=== PATIENT | male | born 1940 | race Caucasian/White ===

== ENCOUNTER 2019-04-06 13:52 | Day surgery (SDC) | payer MEDICARE, MEDICAID ==
[2019-04-06] MEDS ORDERED: Fentanyl 100 MCG/2 ML VIAL ONE (14:37)
[2019-04-06] MEDS ORDERED: Bupivacaine PF 0.5% 30 ML VIAL ONE (14:39)
[2019-04-06] MEDS ORDERED: Bacitracin Zinc Ointment 30 gm TUBE ONE (14:39)
[2019-04-06] MEDS ORDERED: Lidocaine 1% PF 5 ML VIAL ONE (15:23)
[2019-04-06] MEDS ORDERED: Ondansetron PF 4 MG/2 ML Vial ONE (15:23)
[2019-04-06] MEDS ORDERED: PROPOFOL 200 MG/20 ML VIAL ONE (15:23)
[2019-04-06] MEDS ORDERED: Succinylcholine Chloride 20 MG/ML 10 ml SYRINGE FS ONE (15:23)
[2019-04-06] MEDS ORDERED: Dexamethasone 20 MG/5 ML VIAL ONE (15:23)
[2019-04-06] MEDS ORDERED: ePHEDrine 50 MG/ML VIAL ONE (15:23)
[2019-04-06] MEDS ORDERED: Ketorolac Tromethamine 30 MG/ML VIAL ONE (17:32)
--- NOTE | 2019-04-07 10:20 | OP ---
DATE OF PROCEDURE: 04/06/2019 PREOPERATIVE DIAGNOSES: 1. Open distal phalanx fracture, index finger fracture. 2. Nail bed laceration. 3. 3.5 cm complex wound. POSTOPERATIVE DIAGNOSES: 1. Open distal phalanx fracture, index finger fracture. 2. Nail bed laceration. 3. 3.5 cm complex wound. PROCEDURES PERFORMED: 1. Debridement of wound. 2. Via separate area, debridement of open fracture and material associated with open fracture. 3. Open treatment of the distal phalanx fracture. 4. Nail bed repair. 5. Closure of 3.5 cm wound. 6. Full thickness skin graft 2 x 1 cm harvested from ipsilateral right antecubital fossa. TOURNIQUET TIME: 23 minutes. ESTIMATED BLOOD LOSS: 10 mL. FINDINGS: Minimal contamination. DESCRIPTION OF PROCEDURE: After successful general endotracheal anesthesia, the right upper extremity was prepped and draped. Time-out was done appropriately. He had injection at the MP joint level with 10 mL of 0.5% Marcaine. We also injected skin graft area with the same solution, type and amount prior to harvesting the graft. We then deflated the tourniquet and inflated it to 250 mmHg pressure after the limb exsanguination, it was here that we saw open fracture of the right index finger distal phalanx. There also was nail bed laceration and the patient had lost the distal 4 mm of bone, approximately 5 mm in total skin, but the fracture was treated by curetting, making a smooth bed, debridement was accomplished with a curette, Otero blade, rongeur, and with irrigation with 3 L of Pulsavac with antibiotics inside normal saline. We then began the wound debridement using the same instrumentations slightly proximal and through a separate incision more palmar than dorsal. The patient had a segmental loss of the nail bed, but this was completely covering the bone once we had debrided the fracture and done the open treatment. We then repaired the nail bed back to where the flaps the remnant of the nail bed on the lateral wall or of the overlying fat. We then trimmed the overlying fat, we had finished debridement and irrigation with no gross contamination and we felt and discharge would be indicated. We then took the flap, brought it from its ulnar to radial position and then placed it in a maximum closure effort. When we saw after irrigation that we could not cover this area that it was almost 2 cm long by 8 mm wide defect, we then harvested the same appropriate graft using standard techniques from the antecubital fossa. We then closed this after obtaining hemostasis with a running 4-0 Monocryl undyed and then the wound was reapproximated with fibrin glue (fibrin glue in this case is brand name Dermabond). The patient then had the skin graft placed down over the wound covering all of the fat and area without epidermis or dermis. This then allowed for us using the 4-0 nylons in all 4 corners of the graft to create bolster sutures. We then did a running 6-0 chromic final stitch, tourniquet deflated. Hemostasis was excellent. We then closed the remaining dorsal wound to include the entire eponychial fold. We then placed the mineral oil soaked cotton ball over Adaptic, which was over bacitracin and bolstered it to the actual skin graft. We then placed him in a soft dressing with bacitracin, Adaptic, 4x4, Kerlix, and a small 3 inch Marco wrap to support the finger, but no splint. The patient left the operating room without evidence of anesthetic or operative complication. Job ID: [id number]
== END 2019-04-06 18:47 | disposition home or self-care (01) ==
LOC: SDC 13:52
PROVIDERS: ATTEND Orthopaedic Surgery Hand Surgery
PROC: 0HRFX73 Replacement of Right Hand Skin with Autologous Tissue Substitute, Full Thickness, External Approach (ICD-10-PCS; principal; 2019-04-06)
PROC: 0HQQXZZ Repair Finger Nail, External Approach (ICD-10-PCS; 2019-04-06)
PROC: 0PBT0ZZ Excision of Right Finger Phalanx, Open Approach (ICD-10-PCS; 2019-04-06)
DX: S62.630B Displaced fracture of distal phalanx of right index finger, initial encounter for open fracture (principal); F17.220 Nicotine dependence, chewing tobacco, uncomplicated; W31.9XXA Contact with unspecified machinery, initial encounter
CPT/HCPCS: J0131; J0690; J1100; J1885; J2001; J2405; J2704; J3010; J3490; S0020